=== PATIENT | female | born 1985 | race Caucasian/White ===

== ENCOUNTER 2019-10-30 11:27 | Outpatient (CLI) | payer BC, SELFPAY ==
--- NOTE | 2019-10-30 11:33 | XR_ITS ---
WS: [id number] LEFT HAND: 3 VIEW(S) TECHNIQUE: PA, oblique and lateral. HISTORY: inflammatory arthritis COMPARISON: None available. No acute fracture or dislocation. No soft tissue or bone abnormality. No erosions or osteopenia. XR/XR hand LT min 3V* [id number] IMPRESSION: Normal LEFT hand.
--- NOTE | 2019-10-30 11:33 | XR_ITS ---
WS: [id number] CHEST 2 VIEWS HISTORY: inflammatory arthritis COMPARISON: None available. Lungs: Clear with no abnormality. No pleural effusion or pneumothorax. Cardiac size: Normal. Mediastinum/Aorta: Normal mediastinum. Bones: Normal. XR/XR chest 2V* [id number] IMPRESSION: Normal chest.
--- NOTE | 2019-10-30 11:33 | XR_ITS ---
WS: [id number] LEFT FOOT: 3 VIEW(S) TECHNIQUE: AP, oblique and lateral. HISTORY: inflammatory arthritis COMPARISON: None available. No acute fracture or dislocation. Normal tarsal/metatarsal alignment. No osteopenia or erosions. No soft tissue abnormality or bone destruction. XR/XR foot LT min 3V* [id number] IMPRESSION: Normal LEFT foot.
--- NOTE | 2019-10-30 11:33 | XR_ITS ---
WS: [id number] PELVIS: AP VIEW SUBMITTED HISTORY: inflammatory arthritis COMPARISON: None available. No fractures. Very mild sclerosis along the superior aspect of each acetabulum. No erosions at the SI joints. XR/XR pelvis 1-2V* [id number] IMPRESSION: Minimal bilateral arthritic changes at the hip joints.
--- NOTE | 2019-10-30 11:33 | XR_ITS ---
WS: [id number] RIGHT FOOT: 3 VIEW(S) TECHNIQUE: AP, oblique and lateral. HISTORY: inflammatory arthritis COMPARISON: None available. No acute fracture or dislocation. Normal tarsal/metatarsal alignment. No osteopenia or erosions. No soft tissue abnormality or bone destruction. XR/XR foot RT min 3V* [id number] IMPRESSION: Normal RIGHT foot.
--- NOTE | 2019-10-30 11:33 | XR_ITS ---
WS: [id number] LUMBAR SPINE: 3 VIEWS TECHNIQUE: AP, lateral and L5-S1 spot. HISTORY: inflammatory arthritis COMPARISON: None available. Lumbar vertebra are normally aligned. L5 is sacralized. Rudimentary L5-S1 disc. Mild disc space narrowing at T11-12 with osteophytes. SI joints are symmetric bilaterally. No soft tissue abnormalities. Mild narrowing and sclerosis of the acetabulum. XR/XR lumbar spine 2-3V* [id number] IMPRESSION: 1. No lumbar spine fracture. 2. No significant enthesopathy. 3. Sacralized L5.
--- NOTE | 2019-10-30 11:33 | XR_ITS ---
WS: [id number] RIGHT HAND: 3 VIEW(S) TECHNIQUE: PA, oblique and lateral. HISTORY: inflammatory arthritis COMPARISON: None available. No acute fracture or dislocation. No soft tissue or bone abnormality. No erosions or osteopenia. XR/XR hand RT min 3V* [id number] IMPRESSION: Normal RIGHT hand.
== END 2019-10-30 11:28 | disposition home or self-care (01) ==
PROVIDERS: Family Provider Family Medicine; PCP Nurse Practitioner Family; Visit Provider Internal Medicine Rheumatology
DX: Q76.49 Other congenital malformations of spine, not associated with scoliosis (principal); M13.852 Other specified arthritis, left hip; M13.851 Other specified arthritis, right hip
CPT/HCPCS: 71046; 72100; 72170; 73130; 73630; 80076; 81001; 82306; 82565; 82570; 84156; 84439; 84443; 85025; 85651; 86140; 86160; 86480; 86704; 86803; 86812; 87340; 99204

== ENCOUNTER → 2019-12-05 10:34 | Outpatient (BNVA) | payer BC, SELFPAY | PROVIDERS: Family Provider Family Medicine; PCP Nurse Practitioner Family; Visit Provider Internal Medicine Rheumatology | DX: M25.50 Pain in unspecified joint (principal); R76.8 Other specified abnormal immunological findings in serum; Z79.899 Other long term (current) drug therapy; M47.814 Spondylosis without myelopathy or radiculopathy, thoracic region; G89.29 Other chronic pain | CPT/HCPCS: 99214 ==

== ENCOUNTER → 2020-09-09 09:33 | Outpatient (BNVA) | payer OTHER, SELFPAY | PROVIDERS: Family Provider Family Medicine; PCP Nurse Practitioner Family; Visit Provider Nurse Practitioner Women's Health | DX: Z01.419 Encounter for gynecological examination (general) (routine) without abnormal findings (principal); N93.9 Abnormal uterine and vaginal bleeding, unspecified; R10.2 Pelvic and perineal pain; N64.52 Nipple discharge; L73.2 Hidradenitis suppurativa | CPT/HCPCS: 84146; 84402; 84439; 84443; 85025; 87491; 87591; 87661; 88175 ==

== ENCOUNTER → 2020-09-12 14:29 | Outpatient (BNVA) | payer OTHER, SELFPAY | PROVIDERS: Family Provider Family Medicine; PCP Nurse Practitioner Family; Visit Provider Nurse Practitioner Women's Health | DX: N92.0 Excessive and frequent menstruation with regular cycle (principal); R10.2 Pelvic and perineal pain | CPT/HCPCS: 76830 ==

== ENCOUNTER → 2020-09-14 10:11 | Outpatient (BNVA) | payer OTHER, SELFPAY | PROVIDERS: Family Provider Family Medicine; PCP Nurse Practitioner Family; Visit Provider Nurse Practitioner Women's Health | DX: Z20.822 Contact with and (suspected) exposure to COVID-19 (principal); Z11.52 Encounter for screening for COVID-19 | CPT/HCPCS: 87426; 87635 ==

== ENCOUNTER → 2020-10-09 16:14 | Outpatient (BNVA) | payer OTHER, SELFPAY | PROVIDERS: Family Provider Family Medicine; PCP Nurse Practitioner Family; Visit Provider Obstetrics & Gynecology | DX: N93.9 Abnormal uterine and vaginal bleeding, unspecified (principal) | CPT/HCPCS: 88305 ==

== ENCOUNTER → 2020-10-27 10:50 | Outpatient (BNVA) | payer OTHER, SELFPAY | PROVIDERS: Family Provider Family Medicine; PCP Nurse Practitioner Family; Visit Provider Nurse Practitioner Family | DX: Z20.822 Contact with and (suspected) exposure to COVID-19 (principal) | CPT/HCPCS: 87635 ==

== ENCOUNTER 2020-11-01 07:20 | Outpatient (CLI) | payer OTHER, SELFPAY ==
[2020-11-01 07:25] VITALS: BMI 40.3
[2020-11-01 07:51] VITALS: BP 127/84; PULSE 88; RESP 22; TEMP 36.7; O2SAT 93
[2020-11-01 08:22] VITALS: BP 111/77; PULSE 73; RESP 16; TEMP 36.6; O2SAT 96
[2020-11-01 09:17] VITALS: BP 117/81; PULSE 76; RESP 20; TEMP 36.4; O2SAT 94
== END 2020-11-01 09:17 | disposition home or self-care (01) ==
PROVIDERS: PCP Nurse Practitioner Family; Visit Provider Hospitalist
DX: U07.1 COVID-19 (principal)
CPT/HCPCS: 96365

== ENCOUNTER 2022-02-22 08:17 | Outpatient (CLI) | payer OTHER, SELFPAY ==
--- NOTE | 2022-02-22 08:39 | US_ITS ---
WS: [id number] THYROID ULTRASOUND HISTORY: LEFT THYROID NODULE COMPARISON: None available. Right lobe: 1.6 cm x 1.2 cm x 4.6 cm (w x ap x l). Volume: 4.6 cm3. Very tiny nodules within the gland. These are probably small colloid cysts. The largest along the RIG HT isthmus does appear to be a colloid cyst measuring 2.8 mm. Left lobe: 1.8 cm x 1.2 cm x 4.3 cm (w x ap x l). Volume: 4.9 cm3. Normal size and echotexture. No significant or dominant nodules are present. Small colloid cysts. Isthmus: 0.2 cm. US/US thyroid 17945 IMPRESSION: 1. No solid thyroid nodules or nodules which need follow-up. 2. Small bilateral colloid cysts.
== END 2022-02-22 08:18 | disposition home or self-care (01) ==
PROVIDERS: PCP Nurse Practitioner Family; Visit Provider Nurse Practitioner Family
DX: E04.1 Nontoxic single thyroid nodule (principal)
CPT/HCPCS: 76536

== ENCOUNTER 2023-07-11 07:29 | Outpatient (CLI) | payer OTHER, SELFPAY ==
--- NOTE | 2023-07-11 07:38 | MM_ITS ---
WS: [id number] SCREENING DIGITAL BREAST TOMOSYNTHESIS MAMMOGRAM WITH CAD HISTORY: SCREENING COMPARISON: None available. Bilateral CC and MLO with tomosynthesis and synthetic mammography submitted. Computer aided detection analyzed. Breast composition: There are scattered areas of fibroglandular density. Numerous scattered calcifica tions appear to be skin calcifications. 8 mm mass mid depth LEFT breast at 3-4 o'clock. Suspect this is a lymph node. No areas of distortion or additional mass. MM/[place] [id number] IMPRESSION: BI-RADS: 0-Incomplete: Need additional imaging evaluation FOLLOW UP: Need Additional Imaging LEFT breast ultrasound, limited. Reevaluate mass at 3-4 o'clock LEFT breast, nix spect lymph node.
== END 2023-07-11 07:30 | disposition home or self-care (01) ==
LOC: RAD 07:29
PROVIDERS: PCP Nurse Practitioner Family; Visit Provider Nurse Practitioner Family
DX: Z12.31 Encounter for screening mammogram for malignant neoplasm of breast (principal); R92.323 Mammographic fibroglandular density, bilateral breasts; R92.1 Mammographic calcification found on diagnostic imaging of breast; N63.23 Unspecified lump in the left breast, lower outer quadrant
CPT/HCPCS: 77063; 77067

== ENCOUNTER 2023-07-13 06:04 | Outpatient (CLI) | payer OTHER, SELFPAY ==
--- NOTE | 2023-07-13 06:06 | US_ITS ---
WS: [id number] ULTRASOUND LEFT BREAST HISTORY: ABNORMAL MAMMO COMPARISON: Mammogram 07/11/2023 TECHNIQUE: 2-D and Doppler. Ultrasound directed to 3:00 demonstrates benign lymph node measuring 10 x 10 x 5 mm. This corresponds to the mammographic abnormality. US/US breast LT limited* [id number] IMPRESSION: BI-RADS: 2-Benign FOLLOW-UP: 1 Year Follow-up Return to annual screening mammography.
== END 2023-07-13 06:05 | disposition home or self-care (01) ==
LOC: RAD 06:04
PROVIDERS: PCP Nurse Practitioner Family; Visit Provider Nurse Practitioner Family
DX: N63.20 Unspecified lump in the left breast, unspecified quadrant (principal)
CPT/HCPCS: 76642

== ENCOUNTER 2024-05-21 11:55 | Outpatient (CLI) | payer OTHER, SELFPAY ==
--- NOTE | 2024-05-21 12:06 | XR_ITS ---
WS: [id number] PROCEDURE: XR chest 2V* [id number] CLINICAL INFORMATION: CHEST PAIN COMPARISON: None. FINDINGS: Heart: Normal cardiac silhouette. Lungs: Lungs are clear. No consolidation or pleural fluid. Bones: Normal visualized bony structures. Cholecystectomy clips XR/XR chest 2V* [id number] IMPRESSION: Normal chest
== END 2024-05-21 11:56 | disposition home or self-care (01) ==
PROVIDERS: PCP Nurse Practitioner Family; Visit Provider Nurse Practitioner Family
DX: R07.9 Chest pain, unspecified (principal)
CPT/HCPCS: 71046

== ENCOUNTER 2024-12-21 08:30 | Oncology outpatient (recurring) (ONCR) | payer OTHER, SELFPAY ==
[2024-12-21 08:16] VITALS: BP 117/78; PULSE 70; O2SAT 98
[2024-12-21] MEDS: ferric derisomaltose 1,000 MG in sodium chloride 0.9% (100 ml) 100 ML 330 MG IV (08:27)
[2024-12-21 09:16] VITALS: BP 109/73; PULSE 67; RESP 16; TEMP 36.8; O2SAT 98
== END 2025-01-04 23:59 | disposition home or self-care (01) ==
PROVIDERS: PCP Nurse Practitioner Family; Visit Provider Internal Medicine Medical Oncology
DX: Z53.9 Procedure and treatment not carried out, unspecified reason; D50.9 Iron deficiency anemia, unspecified; Z79.899 Other long term (current) drug therapy
CPT/HCPCS: 96365; J1437